=== PATIENT | female | born 1945 | race Caucasian/White ===

== ENCOUNTER 2018-02-25 02:05 | Outpatient (CLI) | payer MEDICARE, OTHER, SELFPAY ==
[2018-02-25 13:35] LABS: Absolute Basophil Count 0.03 k/cumm (0.0-0.2); Absolute Eosinophil Count 0.12 k/cumm (0.0-0.7); Absolute Monocyte Count 0.53 k/cumm (0.11-0.7); Basophils % 0.5; Eosinophils % 1.8; HCT 41.4 % (36.0-46.0); HGB 13.3 g/dL (12.0-15.5); Lymphocytes % 22.8; Mean Corp. HGB Concentration 32.1 g/dL (32.0-36.0); Mean Corpuscular Hemoglobin 30.9 pg (27.0-33.0); Mean Corpuscular Volume 96.3 fL (80-95); Mean Platelet Volume 10.5 fL (8.0-11.0); Monocytes % 8.1; Neutrophils % 66.8; Platelet Count 247 x1000/uL (130-400); White Blood Cell Count 6.58 k/cumm (4.4-10.8)
[2018-02-25 15:12] LABS: ALT 31 U/L (12-78); AST 26 U/L (15-37); Albumin 3.7 g/dL (3.4-5.0); Alkaline Phosphatase 60 U/L (46-116); Anion Gap 8.3 mmol/L (3-11); BUN 17 mg/dL (7-18); Bilirubin, Total 0.3 mg/dL (0.2-1.0); CO2 29.7 mmol/L (21.0-32.0); CREATININE 0.73 mg/dL (0.55-1.02); Calcium 8.9 mg/dL (8.5-10.1); Chloride 101 mmol/L (98-107); Glucose 104 mg/dL (70-100); Potassium 4.3 mmol/L (3.5-5.1); Sodium 139 mmol/L (136-145); Total Protein 7.1 g/dL (6.4-8.2)
== END 2018-02-25 02:25 ==
PROVIDERS: PCP Internal Medicine; Visit Provider Internal Medicine
DX: R73.09 Other abnormal glucose (principal); M85.80 Other specified disorders of bone density and structure, unspecified site
CPT/HCPCS: 36415; 80053; 85025

== ENCOUNTER 2018-10-24 01:13 | Outpatient (CLI) | payer MEDICARE, OTHER, SELFPAY ==
--- NOTE | 2018-10-24 15:32 | DI.RAD_ITS ---
SYMPTOM/DIAGNOSIS: PARAESOPHAGEAL HERNIA, POST SURGERY, K44.9 PA AND LATERAL CHEST: There are no prior comparison exams. The cardiac silhouette is partially obscured by the diaphragm on the PA view. The lungs appear clear. The aorta is mildly tortuous. No hernia is visible. There is no evidence of pneumothorax or pneumomediastinum. There is prominent kyphosis in the lower thoracic spine secondary to asymmetric narrowing of the anterior portions of the disc spaces. IMPRESSION: No acute abnormality. No recurrent paraesophageal hernia is identified.
== END 2018-10-24 01:33 ==
PROVIDERS: PCP Internal Medicine; Visit Provider Internal Medicine
DX: K44.9 Diaphragmatic hernia without obstruction or gangrene (principal)
CPT/HCPCS: 71046

== ENCOUNTER 2019-10-26 11:11 | Outpatient (CLI) | payer MEDICARE, OTHER, SELFPAY ==
[2019-10-26 12:37] LABS: CREATININE 0.69 mg/dL (0.55-1.02); Potassium 3.9 mmol/L (3.5-5.1)
[2019-10-26 12:51] LABS: Hemoglobin A1C 5.6 % (3.8-5.6)
[2019-10-26 16:58] LABS: Rheumatoid Factor <8.6 IU/mL (<12.0)
== END 2019-10-26 11:31 ==
PROVIDERS: PCP Nurse Practitioner; Visit Provider Nurse Practitioner
DX: I10 Essential (primary) hypertension (principal); R73.03 Prediabetes; M25.50 Pain in unspecified joint
CPT/HCPCS: 36415; 82565; 83036; 84132; 86431

== ENCOUNTER 2020-10-29 15:34 | Outpatient (REF) | payer MEDICARE, OTHER, SELFPAY ==
[2020-10-29 18:52] LABS: CREATININE 0.7 mg/dL (0.55-1.02); Calculated LDL 109 mg/dL (<100); Cholesterol 196 mg/dL (<200); HDL Cholesterol 72 mg/dL (40-60); Triglyceride 78 mg/dL (<150)
== END 2020-10-29 15:35 | disposition home or self-care (01) ==
LOC: LBN 15:34
PROVIDERS: PCP Nurse Practitioner; Visit Provider Nurse Practitioner
DX: I10 Essential (primary) hypertension (principal)
CPT/HCPCS: 80061; 82565

== ENCOUNTER 2021-11-18 03:53 | Outpatient (CLI) | payer MEDICARE, SELFPAY ==
[2021-11-18 13:21] LABS: CREATININE 0.7 mg/dL (0.55-1.02); Potassium 3.7 mmol/L (3.5-5.1)
== END 2021-11-18 03:54 | disposition home or self-care (01) ==
PROVIDERS: PCP Nurse Practitioner; Visit Provider Nurse Practitioner Family
DX: I10 Essential (primary) hypertension (principal)
CPT/HCPCS: 36415; 82565; 84132